=== PATIENT | male | born 1985 | race Caucasian/White ===

== ENCOUNTER 2022-02-13 10:07 | Emergency (ER) | payer OTHER | END 2022-02-13 11:46 | disposition home or self-care (01) | LOC: MW.ED 10:07 | DX: S69.92XA Unspecified injury of left wrist, hand and finger(s), initial encounter (principal); X50.0XXA Overexertion from strenuous movement or load, initial encounter | CPT/HCPCS: 73130-26-LT; 73130-LT; 99282; 99283 ==

== ENCOUNTER 2022-04-18 11:32 | Emergency (ER) | payer OTHER ==
[2022-04-18 13:10] LABS: ACETAMINOPHEN <2.0 ug/mL; BLOOD UREA NITROGEN,BUN 11 mg/dL (7.0-18.0); CARBON DIOXIDE,CO2 29.9 mmol/L (21.0-32.0); CHLORIDE,CL 102 mmol/L (98-107); GLUCOSE RANDOM 114 mg/dL (74-106); SODIUM,NA 139 mmol/L (136-148)
[2022-04-18 13:12] LABS: ESTIMATED GFR 90 mL/min (>60)
== END 2022-04-18 13:52 | disposition left against medical advice (07) ==
LOC: MW.ED 11:32
DX: F15.20 Other stimulant dependence, uncomplicated (principal); Z20.822 Contact with and (suspected) exposure to COVID-19
CPT/HCPCS: 36415; 80053; 80143; 80179; 80305-QW; 80307; 81003; 83735; 84443; 85025; 99282; 99283; U0002